=== PATIENT | female | born 1975 | race African-American/Black ===

== ENCOUNTER 2019-01-19 14:13 | Emergency (ER) | payer MEDICAID ==
[~2019-01-19] VITALS: Ht 165.1 cm; Wt 73.0 kg
--- NOTE | 2019-01-19 14:13 | NUR ---
"BIB [facility], ALLERGIC RXN/ SOB WHILE AT A [facility] OFFICE, EPI 0.5 IM GIVEN BY EMS" PT AAOX4, -SOB, NAD NOTED, VSS ,PENDING MD GARCIA
[2019-01-19] MEDS ORDERED: diphenhydrAMINE HCL 50 MG/ML VIAL ONE (14:29)
[2019-01-19] MEDS ORDERED: FAMOTIDINE/PF INJ 20 MG/2 ML VIAL IV ONE ×2 (14:29→14:30)
[2019-01-19] MEDS ORDERED: methylPREDNISolone SOD SUCC 125 MG/2ML VIAL ONE (14:29)
[2019-01-19] MEDS ORDERED: methylPREDNISolone SOD SUCC 125 MG/2ML VIAL IV ONE (14:30)
[2019-01-19] MEDS ORDERED: diphenhydrAMINE HCL 50 MG/ML VIAL IV ONE (14:30)
[2019-01-19] MEDS ORDERED: IV NS 0.9% 1,000 ML BAG IV ONE (14:30)
[2019-01-19] MEDS ORDERED: AMOX250S5 PO (14:31)
[2019-01-19 16:45] VITALS: BP 135/90
--- NOTE | 2019-01-19 16:54 | NUR ---
Patient discharged to home in stable condition. Written and verbal after care instructions given. Patient verbalizes understanding of instruction. IV removed. Catheter intact and site benign. Pressure and 4x4 applied to site. No bleeding noted.
== END 2019-01-19 17:25 | disposition home or self-care (01) ==
LOC: ER 14:16
DX: H66.91 Otitis media, unspecified, right ear (principal); K14.8 Other diseases of tongue; I10 Essential (primary) hypertension; Z60.2 Problems related to living alone
CPT/HCPCS: 36415; 84702; 96374; 96375; 99283; J1200; J2930; J3490; J7030 ×2